=== PATIENT | female | born 1945 | race Caucasian/White ===

== ENCOUNTER 2023-11-15 11:27 | Day surgery (SDC) | payer MEDICARE ==
[~2023-11-15] VITALS: Ht 175.3 cm; Wt 62.7 kg
[2023-11-15] MEDS ORDERED: fentaNYL/PF 50MCG/1 ML 2ML syringe ONE (12:05)
[2023-11-15] MEDS ORDERED: MIDAZolam 1 MG/ML 5ML VIAL ONE (12:05)
[2023-11-15 12:06] VITALS: BP 144/64; PULSE 66; RESP 20
[2023-11-15] MEDS ORDERED: diphenhydrAMINE 50 mg/ml inj ONE (12:06)
[2023-11-15] MEDS ORDERED: LIDOcaine 2% Viscous 15ml cup ONE (12:06)
[2023-11-15] MEDS ORDERED: LEVO88TA7 PO (12:12)
[2023-11-15] MEDS ORDERED: CETI5TAB27 PO (12:13)
[2023-11-15] MEDS ORDERED: MELO-100 PO (12:14)
[2023-11-15] MEDS ORDERED: albuterol IB (12:17)
[2023-11-15 12:26] VITALS: BP 113/62; PULSE 62; RESP 16; O2SAT 98
[2023-11-15 12:36] VITALS: BP 112/57; PULSE 62; RESP 14; O2SAT 96
[2023-11-15 12:46] VITALS: BP 102/62; PULSE 59; RESP 14; O2SAT 97
[2023-11-15 12:56] VITALS: BP 98/56; PULSE 61; RESP 13; O2SAT 96
== END 2023-11-15 13:04 | disposition home or self-care (01) ==
LOC: GI LAB 11:27
PROVIDERS: ATTEND Internal Medicine Gastroenterology
DX: R10.13 Epigastric pain (principal); K29.70 Gastritis, unspecified, without bleeding; K21.9 Gastro-esophageal reflux disease without esophagitis
CPT/HCPCS: 43239; A4620; J1200; J2250; J3010; J7030; Z7512; 99152